=== PATIENT | male | born 1990 | race Caucasian/White ===

== ENCOUNTER 2018-12-17 08:59 | Day surgery (SDC) | payer OTHER ==
[2018-12-17] VITALS (15 sets, daily range): BP systolic 111–134; BP diastolic 47–80; PULSE 58–91; RESP 13–33; Ht 170.2 cm; Wt 68.1 kg
[~2018-12-17] VITALS: Ht 170.2 cm; Wt 68.1 kg
[~2018-12-17 08:59] MED LIST: CIPROFLOXACIN 400 MG in D5W 200 ML IVPB SCH
[2018-12-17] MEDS ORDERED: LACTATED RINGER'S 1,000 ML IV SCH (09:30)
--- NOTE | 2018-12-17 11:47 | HPN ---
Date/Time of Note Date/Time of Note DATE: 12/17/18 TIME: 11:46 Interval H&P Admission Note Pt. seen H&P reviewed: No system changes CRISTINA VOGEL Dec 17, 2018 11:46
--- NOTE | 2018-12-17 11:54 | PREAC ---
Date/Time of Note Date/Time of Note DATE: 12/17/18 TIME: 11:53 Anesthesia Eval and Record Evaluation Time Pre-Procedure Interview DATE: 12/17/18 TIME: 11:53 Age 28 Sex male NPO: 8 hrs Preoperative diagnosis Right testicular mass Planned procedure Right radical orchiectomy Past Medical History Past Medical History: Includes Surgery & Anesthesia Issues No known issue Meds Anticoagulation: No Beta Greg within 24 hr: No Reason Beta Greg not given: Pt. not on B-Greg No Active Prescriptions or Reported Meds Current Medications Ciprofloxacin/ Dextrose 200 ml @ 200 mls/hr PRE-OP IVPB ; Start 12/17/18 at 07:00; Stop 12/17/18 at 19:00 Lactated Ringer's 1,000 ml @ 0 mls/hr Q0M IV Last administered on 12/17/18at 09:35; Admin Dose 100 MLS/HR; Start 12/17/18 at 09:30 Meds reviewed: Yes Allergies Coded Allergies: amoxicillin (Verified Allergy, Severe, HIVES, 12/17/18) rash Allergies Reviewed: Yes Labs/Studies Labs Reviewed: Reviewed by anesthesiologist test: N/A Pre-procedure Exam Last vitals Vital Signs Date Temp Pulse Resp B/P (MAP) Pulse Ox O2 O2 Flow FiO2 Time Delivery Rate 12/17/18 97.7 65 16 123/68 99 Room Air 09:24 (86) Airway: Adequate mouth opening Mallampati: Mallampati I Teeth: Normal Lung: Normal Heart: Normal ASA Physical Status ASA physical status: 2 Emergency: None Planned Anesthetic General/MAC: ETT Planned Pain Management Parenteral pain med Pre-operative Attestations Prior to commencing anesthesia and surgery, the patient was re-evaluated, there was verification of: *The patient's identity *The results of appropriate recent lab work and preoperative vital signs *The above evaluation not changing prior to induction *Anesthetic plan, risk benefits, alternative and complications discussed with patient/family; questions answered; patient/family understands, accepts and wishes to proceed. AJAY PIÑA MD Dec 17, 2018 11:54
[2018-12-17] MEDS ORDERED: ROCURONIUM 50 MG INJ ONE (12:09)
[2018-12-17] MEDS ORDERED: LIDOCAINE 2% (SDV) 5 ML INJ ONE (12:09)
[2018-12-17] MEDS ORDERED: SUCCINYLCHOLINE CHLORIDE 100 MG/5 ML SYG IV ONE (12:09)
[2018-12-17] MEDS ORDERED: PROPOFOL 20 ML ONE (12:09)
[2018-12-17] MEDS ORDERED: GLYCOPYRROLATE 0.4 MG INJ ONE (12:09)
[2018-12-17] MEDS ORDERED: NEOSTIGMINE 3 MG/3 ML SYRINGE ONE (12:09)
[2018-12-17] MEDS ORDERED: MEPERIDINE 100 MG INJ ONE (12:09)
[2018-12-17] MEDS ORDERED: BUPIVACAINE 0.25% (MPF) 30 ML INJ ONE (12:37)
[2018-12-17] MEDS ORDERED: ONDANSETRON 4 MG INJ ONE (13:04)
[2018-12-17] MEDS ORDERED: METOCLOPRAMIDE 10 MG INJ ONE (13:10)
[2018-12-17] MEDS ORDERED: MEPERIDINE 25 MG INJ IV PRN (13:30)
[2018-12-17] MEDS ORDERED: DIPHENHYDRAMINE 50 MG INJ IV PRN (13:30)
[2018-12-17] MEDS ORDERED: OXYCODONE/ACETAMINOPHEN (5/325) TAB PO PRN ×2 (13:30)
[2018-12-17] MEDS ORDERED: FENTAnyl 50 MCG/ML VIAL IV PRN ×2 (13:30)
[2018-12-17] MEDS ORDERED: METOCLOPRAMIDE 10 MG INJ IV PRN (13:30)
[2018-12-17] MEDS ORDERED: ONDANSETRON 4 MG INJ IV PRN (13:30)
[2018-12-17] MEDS ORDERED: MIDAZOLAM 1 MG/ML 2 ML INJ IV PRN (13:30)
[2018-12-17] MEDS ORDERED: HYDROmorphONE 1 MG/5 ML IV SYRINGE IV PRN ×3 (13:30)
[2018-12-17] MEDS: FENTAnyl 50 MCG/ML VIAL IV PRN ×2 (13:45→13:51)
--- NOTE | 2018-12-17 13:45 | PDOCDIS ---
Discharge Instructions DIAGNOSIS Discharge Diagnosis right testicle mass CONDITION [id number] Patient Condition: [id number] Good HOME CARE INSTRUCTIONS: Venkata Diet Instructions: Satya Regular ACTIVITY: Venkata Activity Restrictions: Satya Slowly Increase Activity Venkata Bathing Restrictions: Satya Shower FOLLOW UP/APPOINTMENTS Follow-up Plan 2 weeks, call for date and time REFERRALS Venkata Referring Provider: CRISTINA Bowen EVAN Dec 17, 2018 13:45
--- NOTE | 2018-12-17 13:48 | OPR ---
Date/Time of Note Date/Time of Note DATE: 12/17/18 TIME: 13:47 Operative Report Procedure Date: Dec 17, 2018 Preoperative Diagnosis right testicle mass Postoperative Diagnosis same Operation/Procedure Performed right radical orchiectomy Surgeon Patricia Reflector [employer] Anesthesia Type: general Anesthesiologist: AJAY PIÑA MD Estimated Blood Loss: none Transfusion none Specimen right testicle and cord Grafts/Implants none Tubes/Drains none Complications none Pt Condition Post Procedure: stable Disposition: PACU Indications mass Procedure Description dict [id number] CRISTINA VOGEL Dec 17, 2018 13:48
--- NOTE | 2018-12-17 14:51 | PAC ---
Date/Time of Note Date/Time of Note DATE: 12/17/18 TIME: 14:51 Post-Anesthesia Notes Post-Anesthesia Note Last documented vital signs Vital Signs Date Temp Pulse Resp B/P (MAP) Pulse Ox O2 O2 Flow FiO2 Time Delivery Rate 12/17/18 72 19 120/71 96 Room Air 14:01 (87) 12/17/18 98.0 13:21 Activity: WNL Respiratory function: WNL Cardiovascular function: WNL Mental status: Baseline Pain reasonably controlled: Yes Hydration appropriate: Yes Nausea/Vomiting absent: Yes Comments BT: 98.1 AJAY PIÑA MD Dec 17, 2018 14:51
--- NOTE | 2018-12-17 18:36 | OPR ---
DATE OF OPERATION: PREOPERATIVE DIAGNOSIS: Right testicle mass. POSTOPERATIVE DIAGNOSIS: Right testicle mass, rule out carcinoma. PROCEDURE: Right radical orchiectomy. SURGEON: Waylon Gomez MD ANESTHESIA: General. ESTIMATED BLOOD LOSS: Negligible. DRAINS: None. SPECIMEN: Testicle with cord. DESCRIPTION OF PROCEDURE: The patient was brought to the operating room and placed on the operating table in the supine position. He was prepped and draped in the usual fashion after anesthesia was in duced. A timeout was undertaken. Proper pressure points were padded. He received preoperative anti biotic therapy. Sequential compression devices were applied. Physical examination under anesthesia demonstrates a very hard and enlarged right testicular mass which occupies the vast majority of the t esticle. An incision was subsequently created overlying the inguinal canal between the internal and external ring. The incision was taken through Key's fascia, thus exposing the aponeurosis of the external oblique, which was opened parallel to the fibers. The cord structure was noted to be marked ly congested with multitude of dilated blood vessels. Care was taken to the underlying ilioinguinal nerve which was identified and well preserved. Of note, it was adherent onto the fascia of the exter nal oblique yet this was easily peeled off and well preserved. The cord structure was then identifie d and subsequently, the testicle was freed from the surrounding structures within the scrotal compart ment. The testicle and contents outside of the tunica vaginalis was noted to have a desmoplastic balta ction and was adherent to the inner aspect of the scrotal wall yet, with meticulous blunt and sharp d issection, this was easily freed off of the scrotal wall. At no time was there any violation of the scrotal wall. This allowed for deliverance of the very large right hemiscrotal mass. The cord struc ture was then from the surrounding structures from the level of the external ring up into t he level of the internal ring where the cord structure was doubly ligated with a 0 silk suture. A cl amp was placed proximal and distal to the region and thus excised with a 10-blade scalpel. Pinpoint hemostasis was obtained. No active bleeding could be appreciated. The nerve was once again well pre served and the fascia was then reclosed with a running 3-0 Vicryl suture. The Key's layer was balta pproximated with interrupted 3-0 sutures and the skin edges were reapproximated with running stitch o f 3-0 Vicryl suture and then Dermabond. A sterile dressing was applied as well as a scrotal support with fluffs. Sponge and needle count were all correct. On the back table, the specimen was bivalved and grossly appearance of significant testicular carcinoma with a small amount of normal testicular parenchyma being appreciated. It appears that cancer is extending up to the level of the tunica albu ginea. He will be discharged to home on [address] one tab p.o. q.6 hours p.r.n., dispensed #30, no refill. He will follow up in the office in 2 weeks' time to discuss pathology and evaluate the woun d. All questions were answered. Dictated By: WAYLON CLAY/NTS Conf#: [id number] DID#: [id number]
== END 2018-12-17 17:22 | disposition home or self-care (01) ==
LOC: SDS 08:59
PROVIDERS: ATTEND Urology
DX: C62.91 Malignant neoplasm of right testis, unspecified whether descended or undescended (principal); N50.89 Other specified disorders of the male genital organs
CPT/HCPCS: 88307; J0744; J1170; J2175; J2405; J2710; J2765; J3010